=== PATIENT | male | born 1955 | race Caucasian/White ===

== ENCOUNTER 2019-07-23 13:06 | Outpatient (CLI) | payer OTHER, SELFPAY ==
--- NOTE | ~2019-07-23 | US_ITS ---
US venous doppler UE RT DATE: 07/23/2019 15:12 INDICATION: Right upper extremity swelling TECHNIQUE: Real-time imaging and color flow imaging and Doppler analysis of the veins of the right up per extremity COMPARISON: None FINDINGS: The right internal jugular, subclavian, axillary, brachial, basilic, cephalic, radial and u lnar veins are patent, with spontaneous and phasic flow and with compression where applicable. IMPRESSION: No evidence of deep venous thrombosis of right upper extremity Reviewed, dictated and finalized at [facility]. Reviewed, dictated and finalized at [facility]. [facility]PER
== END 2019-07-23 13:07 | disposition home or self-care (01) ==
PROVIDERS: PCP Student in an Organized Health Care Education/Training Program; Visit Provider Student in an Organized Health Care Education/Training Program
DX: M79.89 Other specified soft tissue disorders (principal)
CPT/HCPCS: 93971